=== PATIENT | female | born 1965 | race African-American/Black ===

== ENCOUNTER 2024-03-01 11:14 | Emergency (ER) | payer MEDICAID ==
[~2024-03-01] VITALS: Ht 165.1 cm; Wt 74.0 kg
[2024-03-01] MEDS ORDERED: IPRATROPIUM BROMIDE (0.02%) 0.5MG/2.5ML NEB HHN STA (12:38)
[2024-03-01] MEDS ORDERED: ALBUTEROL (0.083%) 2.5MG/3ML NEB HHN STA (12:38)
[2024-03-01 12:57] LABS: BASOPHILS % 1.4 % (0.0-2.0); EOSINOPHILS % 9.6 % (0.0-5.0); HEMATOCRIT. 41.6 % (36.0-48.0); HEMOGLOBIN. 13.6 g/dL (12.0-16.0); LYMPHOCYTES % 29.7 % (20.0-50.0); MEAN CORPUSCULAR HEMOGLOBIN 27.5 pg (28.0-32.0); MEAN CORPUSCULAR HGB CONC 32.7 g/dL (31.0-37.0); MEAN CORPUSCULAR VOLUME 84.2 fL (81.0-99.0); MEAN PLATELET VOLUME 7.7 fl (7.4-10.4); MONOCYTES % 11.7 % (2.0-8.0); NEUTROPHILS % 47.6 % (40.0-76.0); PLATELET 320 x1000/uL (130-400); RED BLOOD CELL COUNT 4.94 mill/uL (4.2-5.4); RED CELL DISTRIBUTION WIDTH 14.7 % (11.6-14.6); WHITE BLOOD COUNT 6.4 x1000/uL (4.5-11.0)
[2024-03-01 13:04] LABS: PARTIAL THROMBOPLASTIN TIME 27.3 sec (23.4-31.0); PROTHROMBIN TIME 10.7 sec (9.6-11.0)
[2024-03-01 13:23] LABS: ALANINE AMINOTRANSFERASE 10 IU/L (10-49); ALBUMIN 4.6 g/dL (3.2-4.8); ASPARTATE AMINOTRANSFERASE 19 IU/L (<34); BILIRUBIN TOTAL 0.4 mg/dL (0.1-1.0); CALCIUM 8.7 mg/dL (8.7-10.4); CARBON DIOXIDE 27 mEq/L (21-32); CHLORIDE 106 mEq/L (98-107); CREATININE 0.9 mg/dL (0.6-1.0); GLUCOSE 78 mg/dL (70-105); POTASSIUM 4.2 mEq/L (3.5-5.1); SODIUM 139 mEq/L (136-145); TROPONIN I HIGH SENSITIVITY 5 ng/L (3.0-34)
[2024-03-01 13:33] LABS: UREA NITROGEN BLOOD < 5 mg/dL (9-23)
[2024-03-01] MEDS: PREDNISONE 20MG TABLET PO STA (15:15)
[2024-03-01] MEDS: PREDNISONE 20MG TABLET PO NR (15:15)
[2024-03-01 15:25] VITALS: PULSE 97; RESP 18; O2SAT 100
[2024-03-01] MEDS: IPRATROPIUM BROMIDE (0.02%) 0.5MG/2.5ML NEB HHN STA (15:26)
[2024-03-01] MEDS: ALBUTEROL (0.083%) 2.5MG/3ML NEB HHN STA (15:26)
[2024-03-01] MEDS ORDERED: NEBU-269 MC (17:49)
[2024-03-01] MEDS ORDERED: P50 MT (17:49)
[2024-03-01] MEDS ORDERED: IPRA3AMP31 NEB (17:49)
[2024-03-01] MEDS ORDERED: AZIT250T12 MT (17:49)
[2024-03-01 18:15] VITALS: BP 165/82; PULSE 94; RESP 18; TEMP 98.5
== END 2024-03-01 18:24 | disposition home or self-care (01) ==
LOC: ER 11:14
DX: R06.02 Shortness of breath (principal); R06.2 Wheezing; Z98.890 Other specified postprocedural states
CPT/HCPCS: 80053; 83880; 85025; 85610; 85730; 84484; 36415; 71045; 94640; 93005; 99285; J7512; Z7610 ×3

== ENCOUNTER 2024-04-02 13:03 | Emergency (ER) | payer MEDICAID ==
[~2024-04-02] VITALS: Ht 165.1 cm; Wt 82.0 kg
[~2024-04-02 13:03] MED LIST: AZIT250T12 MT; IPRA3AMP31 NEB; NEBU-269 MC; P50 MT
[2024-04-02 13:09] VITALS: TEMP 98.6
[2024-04-02 14:19] LABS: BASOPHILS % 1.1 % (0.0-2.0); EOSINOPHILS % 9.4 % (0.0-5.0); HEMATOCRIT. 39.9 % (36.0-48.0); HEMOGLOBIN. 13.3 g/dL (12.0-16.0); LYMPHOCYTES % 34.2 % (20.0-50.0); MEAN CORPUSCULAR HEMOGLOBIN 27.3 pg (28.0-32.0); MEAN CORPUSCULAR HGB CONC 33.3 g/dL (31.0-37.0); MEAN CORPUSCULAR VOLUME 82.1 fL (81.0-99.0); MEAN PLATELET VOLUME 7.5 fl (7.4-10.4); MONOCYTES % 11.9 % (2.0-8.0); NEUTROPHILS % 43.4 % (40.0-76.0); PLATELET 340 x1000/uL (130-400); RED BLOOD CELL COUNT 4.86 mill/uL (4.2-5.4); RED CELL DISTRIBUTION WIDTH 14.3 % (11.6-14.6)
[2024-04-02 14:25] LABS: CARBON DIOXIDE 29 mEq/L (21-32); CHLORIDE 104 mEq/L (98-107); POTASSIUM 3.9 mEq/L (3.5-5.1); SODIUM 141 mEq/L (136-145)
[2024-04-02 14:26] LABS: CALCIUM 9.6 mg/dL (8.7-10.4)
[2024-04-02 14:31] LABS: GLUCOSE 81 mg/dL (70-105); UREA NITROGEN BLOOD 9 mg/dL (9-23)
[2024-04-02 14:32] LABS: TROPONIN I HIGH SENSITIVITY 4 ng/L (3.0-34)
[2024-04-02] MEDS: ALBUTEROL (0.083%) 2.5MG/3ML NEB HHN SCH (14:36)
[2024-04-02] MEDS: MAGNESIUM 2 G PREMIX 50 ML IV ONE (15:46)
[2024-04-02] MEDS: METHYLPREDNISOLONE SOD SUCC 125MG/2ML (ACT-O-VIAL) IV STA (15:47)
[2024-04-02 15:59] LABS: CLARITY URINE CLEAR (CLEAR); COLOR URINE YELLOW (YELLOW); GLUCOSE URINE NEGATIVE (NEGATIVE); KETONES URINE NEGATIVE (NEGATIVE); LEUKOCYTE ESTERASE URINE 2+ (NEGATIVE); NITRITE URINE POSITIVE (NEGATIVE); OCCULT BLOOD URINE 1+ (NEGATIVE); PH URINE 5.5 (4.5-8.0); PROTEIN URINE NEGATIVE (NEGATIVE); SPECIFIC GRAVITY URINE 1.014 (1.005-1.030); UROBILINOGEN URINE 0.2 E.U./dL (0.2-1.0)
[2024-04-02 16:36] VITALS: PULSE 89; RESP 20; O2SAT 98
[2024-04-02 16:43] LABS: BACTERIA URINE 3+; RBC URINE 0-2 /hpf (0-2); WBC URINE 25-50 /hpf (0-2); YEAST URINE NONE SEEN
[2024-04-02 16:44] LABS: SQUAMOUS EPITHELIAL CELL URINE FEW /lpf (RARE/1+)
[2024-04-02] MEDS: IPRATROPIUM BROMIDE (0.02%) 0.5MG/2.5ML NEB HHN STA (17:05)
[2024-04-02 17:07] VITALS: RESP 18; O2SAT 100
[2024-04-02 17:21] VITALS: PULSE 88; RESP 20; O2SAT 100
[2024-04-02] MEDS ORDERED: P50 MT (18:32)
[2024-04-02] MEDS ORDERED: IPRA3AMP31 NEB (18:33)
[2024-04-02 18:38] VITALS: BP 158/84; PULSE 85; RESP 18
== END 2024-04-02 18:39 | disposition home or self-care (01) ==
LOC: ER 13:03
DX: R06.02 Shortness of breath (principal); Z88.2 Allergy status to sulfonamides; Z98.890 Other specified postprocedural states
CPT/HCPCS: 80048; 81003; 83880; 85025; 87086; 87186; 84484; 87804 ×2; 87077; 36415; 71045; 94640; 82803; 93005; 96365; 96375; 99285; J3475; J2930; Z7610 ×5

== ENCOUNTER 2024-08-23 12:47 | Emergency (ER) | payer MEDICAID ==
[~2024-08-23] VITALS: Ht 167.6 cm; Wt 81.0 kg
[2024-08-23 12:51] VITALS: O2SAT 99
[2024-08-23 13:08] VITALS: BP 167/93; PULSE 90; RESP 18; TEMP 98.2; O2SAT 99
[2024-08-23] MEDS ORDERED: DEXAMETHASONE 2MG TABLET PO ONE (14:00)
[2024-08-23] MEDS: IPRATROPIUM/ALBUTEROL 0.5-3(2.5)MG/3ML NEB HHN ONE (14:33)
[2024-08-23 15:06] LABS: BASOPHILS % 1.1 % (0.0-2.0); EOSINOPHILS % 7.2 % (0.0-5.0); HEMATOCRIT. 40.9 % (36.0-48.0); LYMPHOCYTES % 37.9 % (20.0-50.0); MEAN CORPUSCULAR HEMOGLOBIN 26.6 pg (28.0-32.0); MEAN CORPUSCULAR HGB CONC 31.7 g/dL (31.0-37.0); MEAN CORPUSCULAR VOLUME 83.9 fL (81.0-99.0); MEAN PLATELET VOLUME 7.5 fl (7.4-10.4); MONOCYTES % 10.7 % (2.0-8.0); NEUTROPHILS % 43.1 % (40.0-76.0); PLATELET 334 x1000/uL (130-400); RED BLOOD CELL COUNT 4.88 mill/uL (4.2-5.4); RED CELL DISTRIBUTION WIDTH 14.7 % (11.6-14.6); WHITE BLOOD COUNT 7.1 x1000/uL (4.5-11.0)
[2024-08-23 15:10] LABS: CALCIUM 9.6 mg/dL (8.7-10.4); CHLORIDE 105 mEq/L (98-107); POTASSIUM 4.1 mEq/L (3.5-5.1); SODIUM 143 mEq/L (136-145)
[2024-08-23 15:11] LABS: CARBON DIOXIDE 31 mEq/L (21-32)
[2024-08-23 15:16] LABS: GLUCOSE 101 mg/dL (70-105); TROPONIN I HIGH SENSITIVITY 4 ng/L (3.0-34); UREA NITROGEN BLOOD 9 mg/dL (9-23)
[2024-08-23] MEDS: DEXAMETHASONE 4MG TABLET PO SCH (15:27)
== END 2024-08-23 17:44 | disposition home or self-care (01) ==
LOC: ER 12:55
DX: J45.901 Unspecified asthma with (acute) exacerbation (principal); Z88.2 Allergy status to sulfonamides; Z98.890 Other specified postprocedural states; Z79.899 Other long term (current) drug therapy
CPT/HCPCS: 80048; 85025; 84484; 36415; 71045; 93005; 99285; J8540; Z7610

== ENCOUNTER 2024-10-25 12:13 | Emergency (ER) | payer MEDICAID ==
[~2024-10-25] VITALS: Ht 165.1 cm; Wt 92.0 kg
[2024-10-25 12:20] VITALS: TEMP 98.3; O2SAT 98
[2024-10-25 14:03] VITALS: BP 174/84; PULSE 65; RESP 15; O2SAT 100
== END 2024-10-25 14:04 | disposition home or self-care (01) ==
LOC: ER 12:13
DX: H92.02 Otalgia, left ear (principal); E11.9 Type 2 diabetes mellitus without complications; J45.909 Unspecified asthma, uncomplicated; Z88.2 Allergy status to sulfonamides; Z98.890 Other specified postprocedural states
CPT/HCPCS: 99281